=== PATIENT | male | born 1955 | race Caucasian/White ===

== ENCOUNTER → 2017-02-22 | Outpatient (CLI) | payer MEDICARE, OTHER ==
[~2017-02-22] MED LIST: IOHEXOL ONE; NITROGLYCERIN AEROSOL (4.9 GM) ONE; SOD CHLORIDE 0.9% 200 ML ONE
--- NOTE | 2017-02-22 14:47 | RADRPT ---
PROCEDURE: CTA OF THE HEART AND CORONARY ARTERIES WITH CONTRAST CT CALCIUM SCORE CLINICAL INDICATION: Chest pain COMPARISON: No previous relevant images are available for comparison. TECHNIQUE: CT calcium score performed without intravenous contrast. Multiphasic ECG-gated volumetri c acquisition from the ascending aorta to the diaphragm performed with intravenous contrast on a hig h-resolution multi detector scanner with multiphasic reconstructions. Multiplanar reconstructions, t hree-dimensional reconstructions, as well as maximal intensity projection images are produced and re viewed. One or more of the following dose reduction techniques were used: Automated exposure control ; Adjustment of the mA and/or kV according to patient size; Use of iterative reconstruction techniqu e; ECG dose modulation. CTDI = 8, 86, 83 mGy. DLP = 2331 mGy-cm. Stenosis classification of vessels greater than 1.5 mm in diameter: None0% Minimal1-24% Qjsu37-87% Jwlcndjt73-17% Hmhlpb66-97% Xhdbtjpg666% (When a vessel appears focally occluded with distal reconstitution there may be trac e patency which is below the resolution of the examination or collateral pathways may exist.) CONTRAST: 125 mL of Omnipaque 350 intravenously without adverse event. FINDINGS: CORONARY CT ANGIOGRAM: Overall quality of the CT angiographic examination is excellent. Normal origins of the coronary arteries are present. The coronary artery system is right dominant. Total calcium score: 56.4 excluding a proximal left anterior descending coronary artery stent. Right Coronary Artery: Small calcified plaques are present within the proximal and mid segments of t he vessel without any stenosis. The acute marginal branch enhances normally. Posterior descending an d posterior lateral coronary artery branches are widely patent. Left Main Coronary Artery: Widely patent without focal irregularity, mural plaque, or significant st enosis. Left Anterior Descending Coronary Artery: A stent versus two tandem stents is observed extending 12 mm from the origin of the vessel over a length of 25 mm. Minimal hypoattenuation is observed within the stent without evidence of significant stenosis. The vessel distal to the stent demonstrates sm all calcified plaques which do not produce any significant stenosis. Visualized septal and diagonal branches: Minimal calcified irregularities of the first diagonal bran ch are observed however the vessel appears to enhance normally. Left Circumflex Coronary Artery: Widely patent without focal irregularity, mural plaque, or signific ant stenosis. Visualized obtuse marginal branches: Widely patent throughout, without focal significant stenosis. Normal appearance of the pericardium. No pericardial effusion. Normal appearing trileaflet aortic valve. Normal appearance of the mitral valve. Thinning with subendocardial low attenuation changes is present involving the left ventricular apex and apical and mid segments with in the left anterior descending coronary artery distribution compat ible with prior ischemic injury. The inferior and lateral lowry appear within normal limits. Left atrial appendage is well opacified. No evidence of intracardiac mass or thrombus. EXTRACARDIAC FINDINGS: Thoracic aorta: Mild dilatation of the mid ascending thoracic aorta measuring 3.9 cm. Pulmonary vessels: Normal caliber pulmonary arteries. No evidence of central filling defect. Conven tional pulmonary venous return. Chest: The visualized lung parenchyma is unremarkable. No mediastinal lymphadenopathy. Abdomen: Incidental imaging of the upper abdomen is unremarkable. IMPRESSION: Total calcium score: 56.4 excluding a proximal left anterior descending coronary artery stent. Right Coronary Artery: Small calcified plaques are present within the proximal and mid segments of t he vessel without any stenosis. Left Main Coronary Artery: Widely patent without focal irregularity, mural plaque, or significant st enosis. Left Anterior Descending Coronary Artery: A stent versus two tandem stents is observed extending 12 mm from the origin of the vessel over a length of 25 mm. Minimal hypoattenuation is observed within the stent without evidence of significant in-stent stenosis. The vessel distal to the stent demons trates small calcified plaques which do not produce any significant stenosis. Visualized septal and diagonal branches: Minimal calcified irregularities of the first diagonal bran ch are observed however the vessel appears to enhance normally. Left Circumflex Coronary Artery: Widely patent without focal irregularity, mural plaque, or signific ant stenosis. Mild dilatation of the mid ascending thoracic aorta measuring 3.9 cm. RPTAT: AADD .Adama Rooney MD, MD Date Time Electronically viewed and signed by .Adama Rooney MD, on 02/22/2017 14:47 .B/
== END | disposition home or self-care (01) ==
LOC: LAB 10:03
PROVIDERS: ATTEND Internal Medicine Interventional Cardiology
DX: I25.10 Atherosclerotic heart disease of native coronary artery without angina pectoris (principal)
CPT/HCPCS: 75571; 75574; Q9967